=== PATIENT | female | born 1955 | race Caucasian/White ===

== ENCOUNTER → 2023-12-08 14:05 | Outpatient (REF) | payer MEDICARE, OTHER, SELFPAY ==
[2023-12-08 15:14] LABS: Reticulocyte Count 1.9 % (0.4-2.8)
[2023-12-08 15:23] LABS: INR 1.18; PT 15.1 Sec (11.4-14.6)
[2023-12-08 15:24] LABS: APTT 34.3 Sec (23.4-35.0)
== END ==
LOC: REG 14:05
PROVIDERS: ATTENDING PHYSICIAN Internal Medicine Hematology & Oncology; FAMILY PHYSICIAN Internal Medicine
DX: D69.6 Thrombocytopenia, unspecified (principal); D46.9 Myelodysplastic syndrome, unspecified; D46.A Refractory cytopenia with multilineage dysplasia; D69.3 Immune thrombocytopenic purpura; D63.0 Anemia in neoplastic disease
CPT/HCPCS: 36415; 85045; 85379; 85610; 85730

== ENCOUNTER → 2023-12-13 10:49 | Outpatient (REF) | payer MEDICARE, OTHER, SELFPAY ==
[2023-12-13 12:18] LABS: Absolute Neutrophils -Man Diff 3.6 10^3/uL (1.4-6.5); Band Neutrophils 3 % (0-3); Eosinophils 2 % (0-6); Hemoglobin 10.1 g/dL (12.0-16.0); Lymphocytes 21 % (20-51); Mean Corp Hgb Conc. 32.6 g/dL (33.0-37.0); Mean Corpuscular Hgb 24.7 pg (27.0-31.0); Mean Corpuscular Volume 75.8 fL (81.0-99.0); Monocytes 6 % (2-9); Platelet Count 58 10^3/uL (130-400); Red Blood Cell Count 4.09 10^6/uL (4.20-5.40); Red Cell Dist. Width 24.2 % (11.5-14.5); Segmented Neutrophils 65 % (42-75); White Blood Cell Count 5.4 10^3/uL (4.8-10.8)
[2023-12-13 12:19] LABS: Anisocytosis 3+; Metamyelocytes 2 % (-); Myelocytes 1 % (-); Normal RBC Morphology No; Platelets Checked Yes
[2023-12-13 12:20] LABS: Acanthocytes 2+; Burr Cells 1+; Ovalocytes 3+; Schistocytes 2+; Tear Drop Red Blood Cells 2+; Total Cells Counted 100; Vacuolated Segs 2+
== END ==
LOC: REG 10:49
PROVIDERS: ATTENDING PHYSICIAN Internal Medicine Hematology & Oncology; FAMILY PHYSICIAN Internal Medicine
DX: D69.6 Thrombocytopenia, unspecified (principal); D46.9 Myelodysplastic syndrome, unspecified; D46.A Refractory cytopenia with multilineage dysplasia; D69.3 Immune thrombocytopenic purpura; D63.0 Anemia in neoplastic disease
CPT/HCPCS: 36415; 85025; 86850; 86900; 86901

== ENCOUNTER → 2024-03-04 09:27 | Outpatient (REF) | payer MEDICARE, OTHER, SELFPAY | LOC: WDC 09:27 | PROVIDERS: ATTENDING PHYSICIAN Internal Medicine | DX: Z12.39 Encounter for other screening for malignant neoplasm of breast (principal); Z12.31 Encounter for screening mammogram for malignant neoplasm of breast | CPT/HCPCS: 77063; 77067 ==

== ENCOUNTER → 2024-06-08 07:06 | Outpatient (REF) | payer MEDICARE, OTHER, SELFPAY ==
[2024-06-08 07:35] VITALS: BP 131/73; BP_SYST 99
[2024-06-08] MEDS: ATIVAN 0.5 MG IV (07:58)
[2024-06-08] MEDS: FLUSH (NSS) 1 FLUSH IV (07:58)
[2024-06-08] MEDS: NSS (PRESERVATIVE FREE) 0.25 ML IV (07:58)
[2024-06-08 08:02] LABS: INR 1.18; PT 15.5 Sec (11.4-14.6)
[2024-06-08 08:15] LABS: Mean Corp Hgb Conc. 32.3 g/dL (33.0-37.0); Mean Corpuscular Hgb 25.8 pg (27.0-31.0); Mean Corpuscular Volume 79.9 fL (81.0-99.0); Platelet Count 67 10^3/uL (130-400); Red Blood Cell Count 3.88 10^6/uL (4.20-5.40); Red Cell Dist. Width 23.1 % (11.5-14.5); White Blood Cell Count 2.8 10^3/uL (4.8-10.8)
[2024-06-08 09:05] VITALS: BP 146/89
[2024-06-08 11:17] LABS: % Basophils 0.7 % (0-2); % Eosinophils 1.1 % (0-6); % Immature Granulocytes 6.4 % (0-0.5); % Lymphocytes 24.9 % (20.5-51.1); % Neutrophils 55.9 % (42.2-75.2); Absolute Immature Granulocytes 0.2 10^3/uL (0-0.05); Absolute Lymphocytes 0.7 10^3/uL (1.2-3.4); Absolute Monocytes 0.3 10^3/uL (0.1-0.6); Absolute Neutrophils 1.6 10^3/uL (1.4-6.5); Nucleated Red Blood Cells % 0 %
[2024-06-08 11:18] LABS: Acanthocytes 1+; Anisocytosis 2+; Hypochromasia 2+; Ovalocytes 2+; Poikilocytosis 2+
[2024-06-08 11:19] LABS: Schistocytes Occasional; Tear Drop Red Blood Cells 1+
[2024-06-08 11:20] LABS: Microcytosis 1+
[2024-06-08 11:21] LABS: Normal RBC Morphology No
== END ==
LOC: RADI 07:06
PROVIDERS: ATTENDING PHYSICIAN Internal Medicine Hematology & Oncology; FAMILY PHYSICIAN Internal Medicine
DX: D46.A Refractory cytopenia with multilineage dysplasia (principal); D68.8 Other specified coagulation defects; D69.6 Thrombocytopenia, unspecified
CPT/HCPCS: 88305; 88311; 88312; 36415; 38222; 77012; 85025; 85610; 88313